=== PATIENT | female | born 1985 | race Hispanic/Latino ===

== ENCOUNTER 2023-02-23 10:32 | Emergency (ER) | payer SELFPAY | END 2023-02-23 11:50 | disposition home or self-care (01) | LOC: CSHERS 10:32 | DX: S20.01XA Contusion of right breast, initial encounter (principal); M25.551 Pain in right hip; M25.511 Pain in right shoulder; I10 Essential (primary) hypertension; F17.210 Nicotine dependence, cigarettes, uncomplicated; Y04.0XXA Assault by unarmed brawl or fight, initial encounter | CPT/HCPCS: 71046 ==

== ENCOUNTER 2023-05-12 22:44 | Emergency (ER) | payer SELFPAY | END 2023-05-13 00:29 | disposition home or self-care (01) | LOC: CSHERS 22:44 | DX: K04.7 Periapical abscess without sinus (principal); J45.901 Unspecified asthma with (acute) exacerbation; H92.02 Otalgia, left ear; E11.9 Type 2 diabetes mellitus without complications; I10 Essential (primary) hypertension; F17.210 Nicotine dependence, cigarettes, uncomplicated | CPT/HCPCS: 99282 ==